=== PATIENT | female | born 1985 | race Caucasian/White ===

== ENCOUNTER 2016-12-23 14:23 | Emergency (ER) | payer OTHER | END 2016-12-23 16:23 | disposition left against medical advice (07) | LOC: ER 14:23 | DX: M25.552 Pain in left hip (principal); G89.29 Other chronic pain; F17.210 Nicotine dependence, cigarettes, uncomplicated; R10.32 Left lower quadrant pain; R11.0 Nausea; R30.0 Dysuria; Z79.899 Other long term (current) drug therapy; Z88.5 Allergy status to narcotic agent; Z88.1 Allergy status to other antibiotic agents; K58.9 Irritable bowel syndrome, unspecified | CPT/HCPCS: 99070; 99282 ==